=== PATIENT | male | born 1995 | race Caucasian/White ===

== ENCOUNTER → 2018-03-26 | Outpatient (CLI) | payer BC ==
--- NOTE | 2018-03-26 14:07 | Diagnostic Imaging Report ---
PROCEDURE:TESTICULAR ULTRASOUND COMPARISON:None. INDICATIONS:Testicular Mass TECHNIQUE: Pandya-scale and color doppler images of the testicles and scrotal contents were obtained. Duplex imaging with spectral waveform analysis was performed of the testicular arteries and veins. FINDINGS: RIGHT SCROTUM: Testicle: 4.2 x 2.0 x 2.8 cm. Normal echogenicity. Normal vascularity. Multiple (greater than 5) punctate hyperechoic foci, consistent with microcalcifications. No focal lesions. Normal vascularity. Epididymal head: 1.2 x 0.7 x 1.1 cm. Normal echogenicity. Normal vascularity. No focal lesions. Hydrocele: None Varicocele: None LEFT SCROTUM: Testicle: 5.2 x 3.2 x 4.1 cm. There is a 4.6 x 2.9 x 3.9 cm solid mass occupying the greater portion of the left testicle, which shows heterogeneous echogenicity, several scattered hypoechoic/anechoic cystic areas and increased internal vascularity. Multiple (greater than 5) punctate hyperechoic foci are noted in the surrounding testicular parenchyma. Epididymal head: 1.8 x 0.7 x 1.0 cm. No focal lesions. Normal vascularity. Hydrocele: None Varicocele: A left varicocele is identified. Normal bilateral arterial and venous flow is documented on color Doppler. A normal-appearing, normal sized 2.2 x 0.8 x 1.4 cm lymph node with normal fatty hilum is noted in the right inguinal region. CONCLUSION: 1. 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 2. Bilateral testicular punctate hyperechoic foci suggestive of microcalcifications. 3. Left varicocele. 4. Findings discussed with Dr. Riana Urbina March 26, 2018 at 1405 hrs. Arun Buitrago M.D. Dictated by: Arun Buitrago M.D. on 03/26/2018 at 14:10 Electronically approved by: Arun Buitrago M.D. on 03/26/2018 at 14:10
--- NOTE | 2018-03-26 14:07 | Diagnostic Imaging Report ---
PROCEDURE:TESTICULAR DOPPLER ULTRASOUND COMPARISON:None. INDICATIONS:Testicular Mass CONCLUSION: Please see previously dictated report under testicular ultrasound performed same date Arun uBitrago M.D. Dictated by: Arun Buitrago M.D. on 03/26/2018 at 14:10 Electronically approved by: Arun Buitrago M.D. on 03/26/2018 at 14:10
== END ==
LOC: US 12:26
PROVIDERS: ATTEND Family Medicine
DX: N50.9 Disorder of male genital organs, unspecified (principal)
CPT/HCPCS: 76870; 93976

== ENCOUNTER → 2018-03-29 | Day surgery (SDC) | payer BC ==
[~2018-03-29] MED LIST: BUPIVACAINE 0.25% 30ML SDV INJ ONE; CEFTRIAXONE SOD 1 GM VIAL ONE; DEXAMETHASONE SOD PHOS INJ 4 MG/ML VIAL ONE; FENTANYL CITRATE/PF 100MCG/2 ML INJ ONE; HYDROCODONE/APAP 10MG-325MG TAB ONE; IOPAMIDOL 370 MG/ML 200 ML INFUS..BTL INJ ONE; KETOROLAC TROMETHAMINE 30 MG/ML VIAL ONE; LIDOCAINE HCL 2% LOCAL INJ 5 ML SDV VIAL INJ ONE; MIDAZOLAM HCL 2 MG/2 ML VIAL ONE; MORPHINE SULFATE INJ 10 MG/ML ONE; ONDANSETRON HCL INJ 2 MG/ML VIAL ONE; PROPOFOL IV EMULSION 10 MG/ML 20 ML VIAL ONE; SEVOFLURANE INHAL SOLN 250 ML PEN BTL ONE; SODIUM CHLORIDE 0.9% 50ML 50 ML ONE
[2018-03-29 10:45] LABS: BASOPHILS # (AUTO) 0.1 (0.0-0.1); BASOPHILS % 0.6 % (0.0-1.0); EOSINOPHILS # (AUTO) 0.2 (0.0-0.4); EOSINOPHILS % 1.4 % (0.0-6.0); HEMATOCRIT 43.9 % (38.2-49.6); HEMOGLOBIN 14.8 g/dL (14.0-18.0); LYMPHOCYTES # (AUTO) 2.2 (1.0-3.2); LYMPHOCYTES % 20.3 % (18.0-39.1); MEAN CORPUSCULAR HGB CONC 33.7 g/dL (31-35); MEAN CORPUSCULAR VOLUME 85.9 fL (81-99); MONOCYTES # (AUTO) 0.9 (0.2-0.8); MONOCYTES % 8.4 % (4.4-11.3); NEUTROPHILS # (AUTO) 7.3 (2.1-6.9); NEUTROPHILS % 68.8 % (38.7-80.0); PLATELET COUNT 282 x10e3/uL (140-360); RED BLOOD COUNT 5.11 x10e6/uL (4.3-5.7); RED CELL DISTRIBUTION WIDTH 13.7 % (11.7-14.4)
[2018-03-29 10:59] LABS: ANION GAP 14.9 mmol/L (8-16); BLOOD UREA NITROGEN 12 mg/dL (7-26); BUN/CREATININE RATIO 12 (6-25); CALCIUM 9.5 mg/dL (8.4-10.2); CARBON DIOXIDE 24 mmol/L (22-29); CHLORIDE 102 mmol/L (98-107); CREATININE, SERUM 0.97 mg/dL (0.72-1.25); EST GLOMERULAR FILTRATION RATE > 60 ML/MIN (60-); GLUCOSE 94 mg/dL (74-118); LACTATE DEHYDROGENASE 195 IU/L (125-220); POTASSIUM 3.9 mmol/L (3.5-5.1); SODIUM 137 mmol/L (136-145)
--- NOTE | 2018-03-29 15:51 | Diagnostic Imaging Report ---
EXAM: CT Abdomen and Pelvis WITH contrast INDICATION: \S\TESTICULAR MASS \S\[id number] \S\[id number] COMPARISON: None. TECHNIQUE: Abdomen and pelvis were scanned utilizing a multidetector helical scanner from the lung base to the pubic symphysis after administration of IV contrast. Coronal and sagittal reformations were obtained. Routine protocol was performed. Scan was performed when during portal venous phase. IV CONTRAST: 100 mL of Isovue-370 ORAL CONTRAST: Water COMPLICATIONS: None RADIATION DOSE: Total DLP: 757.9 mGy*cm Estimated effective dose: (DLP x 0.015 x size factor) mSv CTDIvol has been reviewed. It is below the limits set by the Radiation Protocol Committee (RPC). FINDINGS: LINES and TUBES: None. LOWER THORAX: 5 mm right upper lobe groundglass nodule (series 4, image 39). 4 mm left lower lobe nodule (series 4, image 86). Bibasilar dependent atelectasis. HEPATOBILIARY: No focal hepatic lesions. No biliary ductal dilation. GALLBLADDER: No radio-opaque stones or sludge. No wall thickening. SPLEEN: No splenomegaly. PANCREAS: No focal masses or ductal dilatation. ADRENALS: No adrenal nodules KIDNEYS/URETERS: Kidneys enhance symmetrically. No hydronephrosis. No cystic or solid mass lesions. No stones. GI TRACT: No abnormal distention, wall thickening, or evidence of bowel obstruction. Appendix is normal. PELVIC ORGANS/BLADDER: Unremarkable. LYMPH NODES: No lymphadenopathy. Few nonspecific prominent right lower quadrant lymph nodes are seen measuring up to 0.9 cm (series 5, image 17). VESSELS: Unremarkable. PERITONEUM / RETROPERITONEUM: No free air or fluid. BONES: Bilateral L5 pars defects with minimal L5-S1 spondylolisthesis. SOFT TISSUES: Postsurgical changes of left orchiectomy with fat stranding and subcutaneous emphysema of the left lower abdomen, extending to the left groin and left scrotal sac. IMPRESSION: 1. Postsurgical changes of left orchiectomy. 2. No evidence of metastatic disease in the chest, abdomen, and pelvis. 3. Nonspecific single right and a left lung nodules. Recommend attention on follow-up examination. Signed by: Dr. Ronald Mendoza MD on 03/29/2018 3:47 PM
--- NOTE | 2018-04-08 09:06 | Operative Report ---
DATE OF PROCEDURE: March 29, 2018 PREOPERATIVE DIAGNOSIS: Left testicular tumor. POSTOPERATIVE DIAGNOSES: Left testicular tumor. PROCEDURE PERFORMED: Left radical orchiectomy. ANESTHESIA: General. ESTIMATED BLOOD LOSS: Minimal. INDICATIONS: Mr. Nik Gallegos is a 22-year-old man who noted a firm left mass, which is increasing in size. Ultrasound revealed a hypoechoic lesion suspicious for malignancy. Preoperative markers were elevated. He now presents for the diagnosis and management of this problem. PROCEDURE IN DETAIL: The patient was brought into the operating room and placed in the supine position. After administration of general anesthesia, he was prepped and draped in the usual sterile fashion. After infiltration using 0.25% Marcaine, a left inguinal incision was made sharply and dissection was carried out through the layers of the abdomen. The external ring was identified, and the cord was dissected free in this dislocation and circumferentially surrounded with a Luke drain. The testicle was then removed from its contents using again a combination of blunt and sharp dissection. Hemostasis was obtained in the hemiscrotum using the electrocautery device. The testicle and cord were then dissected up to the level of the internal ring where the peritoneal tissue was identified. Great care was taken to prevent injury to this. The cord was clamped in this location and suture ligated using a silk suture. The suture was cut long for future identification if necessary. The ring was then closed using a 3-0 Vicryl suture. The skin and soft tissues were then closed in layers using a Vicryl suture. The skin was closed was closed using 4-0 Monocryl subcuticular stitch. The wound was then clean and dried, and covered with Mastisol, Steri-Strips and a sterile Tegaderm dressing. Anesthesia was reversed, and the patient was transferred to a bed and taken to the postanesthesia care unit in good condition. Of note, the needle and instrument count were correct at the conclusion of the case. Job#: [id number] GILMAR
== END | disposition home or self-care (01) ==
LOC: OR 09:20
PROVIDERS: ATTEND Urology
DX: C62.92 Malignant neoplasm of left testis, unspecified whether descended or undescended (principal); Z87.891 Personal history of nicotine dependence
CPT/HCPCS: 36415; 54530; 71260; 74177; 80048; 82105; 83615; 84702; 85025; 88309; J0696; J1100; J1885; J2001; J2250; J2270; J2405; Q9967; 88305